=== PATIENT | male | born 2000 | race Caucasian/White ===

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

== ENCOUNTER 2019-03-29 13:06 | Outpatient (CLI) | payer OTHER, SELFPAY ==
--- NOTE | 2019-03-29 13:12 | DI.RAD_ITS ---
EXAM: XR SHOULDER LT COMPLETE 2+V CLINICAL HISTORY: frequent dislocations TECHNIQUE: COMPARISON: No exams were available for comparison FINDINGS: Two views were obtained. No bony or soft tissue abnormality seen. IMPRESSION:
== END 2019-03-29 13:26 ==
PROVIDERS: PCP Internal Medicine; Referring Provider Internal Medicine; Visit Provider Student in an Organized Health Care Education/Training Program
DX: M25.512 Pain in left shoulder (principal); M24.412 Recurrent dislocation, left shoulder
CPT/HCPCS: 99204; 99215; 73030

== ENCOUNTER → 2019-05-02 14:13 | Outpatient (BNVA) | payer OTHER, SELFPAY | PROVIDERS: PCP Internal Medicine; Referring Provider Internal Medicine; Visit Provider Student in an Organized Health Care Education/Training Program | DX: M24.412 Recurrent dislocation, left shoulder (principal); S43.432D Superior glenoid labrum lesion of left shoulder, subsequent encounter; X58.XXXD Exposure to other specified factors, subsequent encounter | CPT/HCPCS: 99214 ==

== ENCOUNTER 2019-05-12 06:02 | Day surgery (SDC) | payer OTHER, SELFPAY ==
--- NOTE | 2019-05-10 14:44 | DSU.FORM ---
05/10/19 Per office request patient told to bring in folder during PPOV.
[2019-05-12] VITALS (9 sets, daily range): BP systolic 126–140; BP diastolic 48–74; PULSE 85–106; RESP 16–22; TEMP 36.3–36.7; O2SAT 97–100
[2019-05-12] MEDS: Lactated Ringers 1,000 ML 100 ML IV ×2 (06:45→12:30)
--- NOTE | 2019-05-12 07:38 | PDOC.DSDIS_ITS ---
Discharge Plan Disposition Patient Disposition: HOME Condition: Stable Discharge Details Reason For Visit: Left shoulder surgery Attending Provider: Shahid Sauer Primary Care Provider: Braydon Chamberlain Home Meds and New Rx's Prescriptions: New naproxen 250 mg tablet 250 - 500 mg PO BID PRN (Reason: pain, moderate) Qty: 60 RF: 0 aspirin 81 mg tablet,delayed release (DR/EC) 81 mg PO DAILY 14 Days Qty: 14 RF: 0 oxycodone 5 mg tablet 5 - 10 mg PO Q4H PRN (Reason: moderate to severe pain) Qty: 22 RF: 0 Discharge Instructions Additional Instructions: Surgery: Shoulder arthroscopy with anterior and posterior labral repair, stabilization and open biceps tenodesis Activity: You should keep your arm at your side in a neutral position at all times except for physical therapy. Do not try to lift or raise your arm using your own muscles. You should use the sling whenever you are out of the house. You may have to adjust the abduction pillow or remove it for comfort. At home it is best to remove the sling and rest the arm on a pillow at your side or support the operative side with your other hand. You may allow the arm to dangle at your side. A physical therapy prescription will be provided separately today. Range of motion guidelines: 0 degrees external rotation and 90 degrees forward flexion for 3 weeks 30 degrees external rotation 120 degrees forward flexion weeks 3-6 Last a full range of motion after week 6 Prescriptions: Aspirin 81 mg take 1 daily to prevent a blood clot for 2 weeks Naproxen 250 mg take 1-2 every 12 hours with a meal as needed for moderate pain Oxycodone 5 mg take 1-2 every 4-6 hours as needed for severe pain You may use [id number] Tylenol (acetaminophen) as needed for mild pain. These pain medications may be taken all at once or in different combinations as needed. Also, recommend Colace (docusate) as a stool softener as surgery and pain medicine cause constipation. Dressings: Leave dressing in place for 2-3 days. May then remove and leave open to air or cover incisions with Band-Aids. May shower after 5 days. Follow-up: 10-[address] Sauer. If cannot follow up locally at that time, must send photo of all shoulder incisions healing to Dr. Sauer at [phone] and follow up within 4-6 weeks as best possible. Please call the office during business hours with any questions or concerns. Let us know right away if you develop any redness, drainage, fevers, chest pain, or trouble breathing. Do not drink alcohol or drive for at least 24 hours after anesthesia. Referrals: Shahid Sauer MD [ [facility] STAFF PHYSICIAN] - Discharge Orders Discharge Orders: Discharge Order (Routine); Ordered 05/12/19 Ordered By: Shahid Sauer DS: Diagnosis Discharge Diagnosis (1) SLAP lesion of left shoulder: Status: Acute (2) Recurrent dislocation, left shoulder: Status: Acute
[2019-05-12] MEDS: ceFAZolin 2 GM/50 ML BAG IVPB (07:46)
[2019-05-12] MEDS: EPINEPHrine 30 MG/30 ML VIAL (11:02)
--- NOTE | 2019-05-12 11:53 | W.PM.OP ---
Date of service: 05/12/19 Time of Service: 11:53 Operative Note Operative Note DATE OF PROCEDURE: 05/12/19 PRE-OP DIAGNOSIS: Left: 1. Recurrent shoulder dislocation 2. SLAP tear POST-OP DIAGNOSIS: other 1. Recurrent shoulder dislocation with anterior and posterior labral tearing 2. Type 4 bucket handle SLAP tear with detached LHB anchor 3. LHB longitudinal split tearing near anchor 4. Extensive synovitis 5. Extensive bursitis PROCEDURE: Left: 1. Extensive debridement, CPT# 44166. This involved using arthroscopic hand instruments, power instruments, and radiofrequency instruments to debride areas of labral tearing, synovitis, and chondromalacia within the glenohumeral joint anteriorly, superiorly, and posteriorly. 2. Open biceps tenodesis, CPT# 80259. This involved reattaching the long head of the biceps tendon to the proximal humerus in the sub-pectoral area of the bicipital groove at the correct tension. 3. Subacromial decompression with partial acromioplasty, CPT# 44220. This involved using arthroscopic power instruments and a radiofrequency wand to complete a bursectomy and remove bone spurs on the undersurface of the acromion. 4. Arthroscopic labral repair capsulorhaphy, CPT# 40473. This involved mobilizing the anterior and posterior labral tear and surrounding capsule ligamentous structures and anchoring this tissue to the glenoid rim with suture anchors both anteriorly and posterior 5. Arthroscopic SLAP repair, CPT #19537. This involved stabilizing the displaced bucket handle type 4 SLAP tear to the superior glenoid by re-attaching it with suture anchors at 11 and 2 o clock positions. The sales service assistant was medically required in order to help assist in techniques above, which require positioning the arm, holding the arthroscope, and manipulating 2 to 4 instruments and sutures at the same time. This cannot be done without the help of an experienced sales service assistant. SURGEON: Shahid Sauer MECHANICAL DESIGNER: Tristian Echeverria ANESTHESIA: GETA, regional and local ESTIMATED BLOOD LOSS: 10 PATHOLOGY: none sent COMPLICATIONS: None Patient was transported to: PACU Patient's condition: stable Implants: Arthrex: 2.9 mm PushLock x 6 and Unicortical Proximal Biceps Tenodesis Button Indications: The patient was diagnosed with the above conditions and appropriately indicated for surgical intervention. Please see complete medical record for details. Findings: Exam under anesthesia: Full symmetric ROM with anterior and posterior humeral head subluxation Glenohumeral joint: Significant type 4 SLAP tear with bucket handle displacement into the joint. Tear extending into the LHB tendon anchor. Extensive anterior and posterior synovitis. Small amount of anterior and satya-inferior glenoid bone loss. Small posterior humeral head Hill-Sachs lesion. Intact rotator cuff. Grade 1-2 chondromalacia adjacent to anterior, superior, and posterior labral tearing. Subacromial space: Extensive bursitis. Intact rotator cuff. Moderate undersurface acromion bone spur. Procedure Description: The patient was taken to the operating room and transferred to the operating room table. General anesthesia was induced. While under anesthesia, bilateral shoulders were examined. The patient was positioned in the beachchair position. All bony prominences were well-padded. Preoperative antibiotics were administered. The shoulder was prepped and draped in the usual sterile fashion. The correct patient, procedure, and side of the procedure were all verified prior to incision. Starting through the posterior portal a standard complete diagnostic arthroscopy was performed of the glenohumeral joint including inspection of the long head of the biceps, anterior and superior labrum, subscapularis tendon, supraspinatus and infraspinatus tendons, and axillary recess. The glenoid and humeral head cartilage as well as the posterior labrum were inspected from an anterior viewing portal. Significant findings noted above. The biceps tendon was tenotomized from the labrum using arthroscopic scissors. The extensive SLAP tear was debrided to remove loose frayed tissue from the joint. 10 cc of 0.5% bupivacaine with epinephrine was infiltrated about a 2 to 3 cm longitudinal incision at the inferior margin of the pectoralis major localized over the long head of the biceps tendon. Blunt and sharp dissection were used to expose the tendon in the bicipital groove. The tendon was brought out of the wound and kept off the skin on top of a blue towel. The correct location for sub-pectoral fixation was localized, prepped with a rasp, and then drilled with a 3.2 mm drill pin in a unicortical fashion. Using a fiber loop suture the tendon was prepped from the musculotendinous junction a few centimeters proximal. The excess tendon was amputated. The free suture ends were then passed through the unicortical button implant. The drill pin was removed and the implant was placed into the humeral intramedullary canal. The button was flipped and the sutures were tensioned bringing the tendon down to bone. Tension and fixation were then tested and found to be appropriate. The free ends of the suture were were tied. The wound was copiously irrigated with normal saline. Subcutaneous tissue was closed using 3-0 Monocryl in a buried interrupted fashion. Skin was closed using 3-0 Monocryl in a buried subcuticular running fashion. Skin glue was applied over the incision. Mastisol was applied about the incision. The incision was covered with Telfa, gauze, and covered with a Tegaderm dressing. Starting through the posterior portal, the arthroscope was directed into the subacromial space. A lateral 50 yard line lateral portal was created. A combination of power instruments and a radiofrequency ablator were used to debride bursitis anteriorly, posteriorly, and laterally as well as expose and smooth bone spurring on the undersurface of the acromion. The bursectomy was completed viewing laterally and working from posteriorly and the rotator cuff was thoroughly inspected with findings noted above. The arthroscope was returned to the joint. Viewing from anterior attention was turned to the posterior labral repair. 2 rigid cannulas were inserted posteriorly. The labral elevator and then ring curette were used to prepare the posterior glenoid rim and mobilize capsule and labrum for repair. 1 anchor was placed centrally incorporating central and inferior posterior capsular ligamentous tissue using a curved lasso and suture tape cinch mode technique. A second anchor was placed more superiorly anchoring the posterior margin of the SLAP tear but avoiding placement directly superiorly where there is poor healing and blood flow. The cannulas were removed and viewing was returned to posterior a second inferior anterior portal was established just superior the subscapularis. Rigid cannulas were inserted through both anterior portals. Again an elevator was used to mobilize significantly torn and disrupted anterior capsule ligamentous tissue and the ring curette was used to prepare the anterior glenoid rim from inferior centrally and superiorly. Begin with the most inferior position of the tear and taking great care to incorporate capsular ligamentous aspects of the anterior inferior glenohumeral ligament the first anterior anchor was placed. I proceeded to place 2 more anchors inferiorly and then centrally for the anterior labral tear. Lastly for the more superior portal a fourth anchor was placed to secure the 11 o'clock position of the previously dislocated and unstable SLAP tear. The biceps anchor was probed and found to be held in place by the anterior and posterior anchors avoiding the direct biceps anchor zone. There was some fraying and redundant tissue somewhat anteriorly that was trimmed to a stable margin. The joint was inspected from superiorly and found to have excellent reduction of the nearly circumferential anterior inferior anterior superior and posterior labral tear. All tissue was probed and found to be stable. The shoulder was drained of arthroscopic fluid. All portal sites were copiously irrigated. These incisions were closed using 3-0 Monocryl in a buried fashion, covered with Mastisol, Steri-Strips, Xeroform, dry gauze, and ABDs. The dressings were covered and secured with Medipore tape. The operative extremity was placed into a sling for immobilization. The patient awoke from anesthesia without complication and was transferred to the recovery room in a stable condition.
[2019-05-12] MEDS: oxyCODONE 5 MG TAB PO (13:19)
== END 2019-05-12 14:25 | disposition home or self-care (01) ==
PROVIDERS: PCP Internal Medicine; Visit Provider Student in an Organized Health Care Education/Training Program
PROC: (CPT 29805; principal; 2019-05-12 07:30)
PROC: (CPT 23430; 2019-05-12 07:30)
DX: S43.432A Superior glenoid labrum lesion of left shoulder, initial encounter (principal); M24.412 Recurrent dislocation, left shoulder; S46.112A Strain of muscle, fascia and tendon of long head of biceps, left arm, initial encounter; M65.812 Other synovitis and tenosynovitis, left shoulder; M75.52 Bursitis of left shoulder; M94.212 Chondromalacia, left shoulder; M85.812 Other specified disorders of bone density and structure, left shoulder; S42.295A Other nondisplaced fracture of upper end of left humerus, initial encounter for closed fracture; M25.812 Other specified joint disorders, left shoulder; G89.18 Other acute postprocedural pain; X50.0XXA Overexertion from strenuous movement or load, initial encounter
CPT/HCPCS: 29806; 29826; 23430; 29823; 29807; C1713; 76942; J0690; J1100; J1885; J2001; J2250; J2370; J2405; L3670

== ENCOUNTER 2019-05-17 19:00 | Emergency (ER) | payer OTHER, SELFPAY ==
[2019-05-17 19:05] VITALS: BP 140/100; PULSE 94; RESP 16; TEMP 36.4; O2SAT 97
--- NOTE | 2019-05-17 19:14 | ED.GENADUL_ITS ---
Discharge Plan Disposition Patient Disposition: HOME Condition: Good Discharge Details Chief Complaint: Recheck Clinical Impression: Encounter for post surgical wound check Primary Care Provider: Braydon Chamberlain ED Provider: Carly Hardy Home Meds and New Rx's Prescriptions: Continued oxycodone 5 mg tablet 5 - 10 mg PO Q4H MDD 60 PRN (Reason: moderate to severe pain) Qty: 22 RF: 0 naproxen 250 mg tablet 250 - 500 mg PO BID PRN (Reason: pain, moderate) Qty: 60 RF: 0 aspirin 81 mg tablet,delayed release (DR/EC) 81 mg PO DAILY 14 Days Qty: 14 RF: 0 Discharge Instructions Additional Instructions: Please follow postoperative instructions and forth by Dr. smith. Please monitor wound for signs infection including redness, warmth, drainage, increased pain, fever/chills. He develop these or other new/worsening symptoms please seek care urgently once again. Referrals: Shahid Sauer MD [ [facility] STAFF PHYSICIAN] - Discharge Data Discharge Date/Time-TO BE ENTERED AT DEPARTURE: 05/17/19 19:55 Medical Decision Making Patient is a 18-year-old male presenting today with chief complaint difficulty with postoperative dressings. Patient is 6 days status post left shoulder arthroscopy for instability. Patient also had an open biceps tenodesis. He reports that he was advised by orthopedics that he could remove the dressings today. In doing so, noted in the dressing over the tenodesis to be sticking. P resents in here for dressing removal. About the superior aspect of the shoulder, port sites are noted covered with Steri-Strips. I advised that he leave these in place and allow this to come off naturally. No surrounding signs of infection. No discomfort over this area. The wound over the biceps tenodesis however, has Telfa in place. Appears that the Telfa may have been placed prior to the glue drying. When the patient tried to remove the Telfa, a piece of the glue came off and there is an open area of bleeding. I do not see any evidence of infection in this area either. Nursing staff attempted to remove this but was having a large amount of difficulty. Patient did vasovagal but was laid down prior to syncopal event. We attempted to trim back the dressing as much as possible. Advised that he could shower as was advised by orthopedics and that this may help with some of the dressing come off. We did discuss signs symptoms of infection once again and when to seek care urgently. Otherwise, that that he follow-up with orthopedics regarding further wound care and follow postoperative instructions. All of their questions and concerns were addressed in agreement this plan. HPI General Mode of arrival: ambulatory . Date/Time Provider Initiated Documentation: 05/17/19 19:14 . Limitations to Documentation: no limitations . Information obtained by: patient, family (Mother) and RN notes reviewed . History of Present Illness 18 year old M presents to the emergency department with the chief complaint of Presents for assistance with dressing removal, described as mild, Quality is described as aching, and is localized to the right and upper extremity. Patient reports no radiation. Patient started experiencing this day(s) (Patient is 6 days postop) Immobilization improves symptom(s), Movement worsens symptoms . Patient notes no other symptoms.. Related Data Home Medications Medication Instructions Recorded Confirmed aspirin 81 mg PO DAILY 14 Days #14 tab 05/12/19 naproxen 250 - 500 mg PO BID PRN #60 tab 05/12/19 oxycodone 5 mg tablet 5 - 10 mg PO Q4H PRN #22 tab MDD 60 05/12/19 05/12/19 Previous Rx's Medication Instructions Recorded aspirin 81 mg PO DAILY 14 Days #14 tab 05/12/19 naproxen 250 - 500 mg PO BID PRN #60 tab 05/12/19 oxycodone 5 mg tablet 5 - 10 mg PO Q4H PRN #22 tab MDD 60 05/12/19 Allergies Allergy/AdvReac Type Severity Reaction Status Date / Time No Known Allergies Allergy Unverified 03/29/19 12:51 General Stated Complaint: Recheck PEARL: 4 Review of Systems Constitutional Constitutional: Reports as per HPI, Denies chills and Denies fever(s) Musculoskeletal Musculoskeletal: Reports as per HPI Integumentary/Breasts Skin/Breast: Reports as per HPI Neurologic Neurologic: Reports as per HPI, Denies sensory deficit and Denies paresthesias [facility] Social History Smoking/Tobacco Use Status: Never Alcohol Intake: never Drug use: Never Current gender identity: male Do you feel safe at home: Yes Do you feel safe in your relationship?: Yes Exam Const General: cooperative, healthy appearing, comfortable, no acute distress and well developed Nutritional Appearance: average body habitus and well nourished Orientation: alert and awake Resp Effort & Inspection: normal respiratory effort, able to speak in complete sentences and no respiratory distress Cardio Rate: regular rate Rhythm: regular rhythm Skin Trauma: laceration (Incisions appear to be healing well with no erythema, warmth, drainage.) Neuro General: alert and awake Cognition: normal cognition Speech: speech normal Gait: normal gait Sensory Exam: no sensory deficits noted Psych Appearance: grossly normal and well kempt Mental Status: mental status grossly normal Speech and Movement: speech and movement normal Course Vital Signs Vital signs: Vital Signs Temperature 36.4 C L 05/17/19 19:05 Pulse 94 H 05/17/19 19:05 Respiratory Rate 16 05/17/19 19:05 Blood Pressure 140/100 H 05/17/19 19:05 Pulse Oximetry 97 05/17/19 19:05 Temperature 36.4 C L 05/17/19 19:05 Temperature Source Temporal Artery Scan 05/17/19 19:05 Pulse 94 H 05/17/19 19:05 Respiratory Rate 16 05/17/19 19:05 Respiratory Effort 05/17/19 19:08 Blood Pressure 140/100 H 05/17/19 19:05 Blood Pressure Position Sitting 05/17/19 19:05 Pulse Oximetry 97 05/17/19 19:05 Oxygen Delivery Method Room Air 05/17/19 19:05 Oxygen Flow Rate 0 05/17/19 19:05
== END 2019-05-17 19:55 | disposition home or self-care (01) ==
PROVIDERS: Emergency Provider Physician Assistant; PCP Internal Medicine
DX: T81.31XA Disruption of external operation (surgical) wound, not elsewhere classified, initial encounter (principal); Y83.8 Other surgical procedures as the cause of abnormal reaction of the patient, or of later complication, without mention of misadventure at the time of the procedure; R42 Dizziness and giddiness; Z48.01 Encounter for change or removal of surgical wound dressing
CPT/HCPCS: 99281; 99283

== ENCOUNTER → 2019-07-18 10:26 | Outpatient (BNVA) | payer OTHER, SELFPAY | PROVIDERS: PCP Internal Medicine; Referring Provider Internal Medicine; Visit Provider Student in an Organized Health Care Education/Training Program | DX: S43.432D Superior glenoid labrum lesion of left shoulder, subsequent encounter (principal); X58.XXXD Exposure to other specified factors, subsequent encounter; M24.412 Recurrent dislocation, left shoulder ==

== ENCOUNTER → 2019-08-15 08:58 | Outpatient (BNVA) | payer OTHER, SELFPAY | PROVIDERS: PCP Internal Medicine; Referring Provider Internal Medicine; Visit Provider Student in an Organized Health Care Education/Training Program | DX: S43.432D Superior glenoid labrum lesion of left shoulder, subsequent encounter (principal); X58.XXXD Exposure to other specified factors, subsequent encounter; M24.412 Recurrent dislocation, left shoulder; G25.89 Other specified extrapyramidal and movement disorders; M24.512 Contracture, left shoulder | CPT/HCPCS: 99213 ==

== ENCOUNTER → 2019-11-15 08:59 | Outpatient (BNVA) | payer OTHER, SELFPAY | PROVIDERS: PCP Internal Medicine; Referring Provider Internal Medicine; Visit Provider Student in an Organized Health Care Education/Training Program | DX: S43.432D Superior glenoid labrum lesion of left shoulder, subsequent encounter (principal); X58.XXXD Exposure to other specified factors, subsequent encounter; M24.512 Contracture, left shoulder; G25.89 Other specified extrapyramidal and movement disorders; M24.412 Recurrent dislocation, left shoulder | CPT/HCPCS: 99213 ==

== ENCOUNTER → 2020-04-17 09:06 | Outpatient (BNVA) | payer OTHER, SELFPAY | PROVIDERS: PCP Internal Medicine; Referring Provider Internal Medicine; Visit Provider Student in an Organized Health Care Education/Training Program | DX: Z47.89 Encounter for other orthopedic aftercare (principal); M24.512 Contracture, left shoulder; G25.89 Other specified extrapyramidal and movement disorders; M24.412 Recurrent dislocation, left shoulder | CPT/HCPCS: 99213 ==

== ENCOUNTER 2023-04-18 06:59 | Emergency (ER) | payer OTHER, SELFPAY ==
[2023-04-18] VITALS (20 sets, daily range): BP systolic 103–139; BP diastolic 59–85; PULSE 70–127; RESP 16–18; TEMP 36.5–37.1; O2SAT 98–100
--- NOTE | 2023-04-18 07:30 | ED.GENADUL_ITS ---
Discharge Plan Disposition Patient Disposition: Home Condition: Good Discharge Details Clinical Impression: Vomiting Primary Care Provider: Braydon Chamberlain ED Provider: Lauren Marks Home Meds and New Rx's Prescriptions: New ondansetron 4 mg tablet,disintegrating 4 mg PO Q8H PRNQty: 14 0RF Discharge Instructions Instructions: Acute Nausea and Vomiting (ED) Additional Instructions: Zofran up to every 8 hours as needed for vomiting. Call your primary care doctor tomorrow to schedule an appointment for within one week to followup on your visit today. Mention that your potassium and magnesium were a little low, and that your bilirubin (liver test) and blood glucose were a little high. Return to the emergency department for new or worsening symptoms including inability to keep down fluids, feeling like you are going to pass out, or if you have any other concerns. Stand Alone Forms: Work Release Referrals: Braydon Chamberlain MD [Primary Care Provider] - Medical Decision Making 22yo previously healthy male presenting for acute nausea vomiting onset overnight. Nonbloody nonbilious, no abdominal pain, fevers, or bowel changes. Tacycardiac upon ambulating into [facility] to 127, improved to 90 by time of rooming without intervention. Vital signs otherwise reassuring. Not concerning for sepsis. Physical exam reassuring, non-toxic appearing, no abdominal tenderness. Not concerned for bowel obstruction, appendicitis, or gallblader pathology. Would not pursue CT or USi maging. Given 1L IVFB and IV zofran. Labs reviewed as below, CBC with leukocytosis otherwise reassuring, CMP with borderline hypokalemia and hypomagnesium (advised to followup with PCP for repeat labs),bilirubin slightly elevated at 1.4 with normal transaminases. Low suspicion for acute hepatitis, hepatitis panel would be send out; he was also advised to followup with his PCP for this. On reassessment he reports feeling much improved and is able to tolerate PO fluids, requests discharge home which is reasonable. Discharge instructions and return precautions were reviewed with patient who verbalized understanding. All questions were answered and he is in full agreement with the plan. Lab Data Lab results reviewed: Yes I reviewed the patient's lab results. Labs: Laboratory Tests Range/Units 04/18/23 07:30 WBC (4.4-10.8) 10^3/uL 13.55 H RBC (4.36-5.78) 10^6/uL 5.00 Hgb (13.5-17.5) g/dL 15.3 Hct (40.0-50.0) % 43.2 MCV (80-95) fL 86 MCH (27.0-33.0) pg 30.6 MCHC (32.0-36.0) % 35.4 RDW (11.8-14.1) % 11.4 L Plt Count (130-400) 10^3/uL 262 MPV (8.0-11.0) fL 10.6 Immature Gran % 0.4 Neutrophils % 92.3 Lymphocytes % 3.1 Monocytes % 4.1 Eosinophils % 0.0 Basophils % 0.1 Nucleated RBC % (0.0-0.3) % 0.0 Absolute Neutrophils (1.2-6.7) 10^3/uL 12.51 H Absolute Lymphocytes (1.2-3.4) 10^3/uL 0.42 L Absolute Monocytes (0.1-0.8) 10^3/uL 0.56 Absolute Eosinophils (0.0-0.7) 10^3/uL 0.00 Absolute Basophils (0.0-0.2) 10^3/uL 0.01 Sodium (136-145) mmol/L 135 L Potassium (3.5-5.1) mmol/L 3.4 L Chloride (98-107) mmol/L 99 Carbon Dioxide (21.0-32.0) mmol/L 25.6 Anion Gap (3-11) mmol/L 10.4 BUN (7-18) mg/dL 21 H Creatinine (0.70-1.30) mg/dL 1.2 Est GFR (CKD-EPI 2020) (mL/min/1.73m2) 87.15 Glucose (74-106) mg/dL 203 H Calcium (8.5-10.1) mg/dL 9.4 Magnesium (1.8-2.4) mg/dL 1.5 L Total Bilirubin (0.2-1.0) mg/dL 1.4 H AST (15-37) U/L 16 ALT (16-63) U/L 16 Alkaline Phosphatase (46-116) U/L 86 Total Protein (6.4-8.2) g/dL 7.9 Albumin (3.4-5.0) g/dL 4.6 HPI General Mode of arrival: ambulatory . Date/Time Provider Initiated Documentation: 04/18/23 07:18 . Limitations to Documentation: no limitations . Information obtained by: patient . HPI Narrative: 22yo previously healthy male presenting for acute nausea vomiting. [place] well yesterday. Overnight woke up nauseated and has had 5-6 episodes of nonbloody nonbilious emesis since then. No abdominal pain. No fevers. No lightheadedness. He is otherwise in his usual state of health with no chills, r ange, constipation, diarrhea, chest pain, shortness of breath, or other concerns. Related Data Home Medications Medication Instructions Recorded Confirmed ondansetron 4 mg disintegrating 4 mg PO Q8H PRN #14 tabs 04/18/23 tablet Previous Rx's Medication Instructions Recorded ondansetron 4 mg disintegrating 4 mg PO Q8H PRN #14 tabs 04/18/23 tablet Allergies Allergy/AdvReac Type Severity Reaction Status Date / Time No Known Allergies Allergy Verified 04/18/23 07:17 General Stated Complaint: Nausea/Vomit/Diar PEARL: 3 Review of Systems Narrative: see HPI PFSH All Active Problems (Updated 04/18/23 @ 09:02 by Lauren Marks MD) Vomiting (Acute) Contracture of left shoulder (Acute ~08/2019) Scapular dyskinesis (Acute ~08/2019) SLAP lesion of left shoulder (Acute ~05/2015) Recurrent dislocation, left shoulder (Acute ~05/2015) Social History Smoking/Tobacco Use Status: Never Smoking risk assessment performed?: Yes Alcohol Intake: never Drug use: Never Substance use type: does not use Housing: house Current gender identity: male Do you feel safe at home: Yes Do you feel safe in your relationship?: Yes Exam Narrative Exam Narrative: General: Alert, well appearing, well nourished, in no acute distress. Head: Normocephalic, atraumatic Neck: Trachea midline, ?Neck supple. ENT: ?MMM.? Cardiac: ?RRR, no murmurs appreciated Resp: No respiratory distress. CTAB. Abd: ?Soft, non-distended, nontender : ?No suprapubic tenderness. Extremities: ?No deformities.? No peripheral edema. Neurologic: GCS 15. ? Moves all extremities freely against gravity Course Vital Signs Vital signs: Vital Signs Temperature 36.5 C 04/18/23 07:15 Pulse 127 H 04/18/23 07:15 Respiratory Rate 18 04/18/23 07:15 Blood Pressure 139/72 04/18/23 07:15 Pulse Oximetry 98 04/18/23 07:15 Temperature 37.1 C 04/18/23 07:20 Pulse 90 04/18/23 07:20 Respiratory Rate 16 04/18/23 07:20 Respiratory Effort Normal, Non-Labored 04/18/23 07:19 Blood Pressure 139/72 04/18/23 07:15 Pulse Oximetry 99 04/18/23 07:20 Oxygen Delivery Method Room Air 04/18/23 07:20 Pain Level 0 04/18/23 07:15
[2023-04-18 07:43] LABS: Abs Immature Grans 0.05 10^3/uL (0.0-0.06); Absolute Lymphocyte Count 0.42 10^3/uL (1.2-3.4); Absolute Monocyte Count 0.56 10^3/uL (0.1-0.8); Basophils % 0.1; HCT 43.2 % (40.0-50.0); HGB 15.3 g/dL (13.5-17.5); Immature Grans % 0.4; Lymphocytes % 3.1; MCH 30.6 pg (27.0-33.0); MCHC 35.4 % (32.0-36.0); MCV 86 fL (80-95); MPV 10.6 fL (8.0-11.0); Monocytes % 4.1; Neutrophils % 92.3; Platelet Count 262 10^3/uL (130-400); RDW 11.4 % (11.8-14.1); RDW-SD 36.1 fL; WBC 13.55 10^3/uL (4.4-10.8)
[2023-04-18] MEDS: Normal Saline 1,000 ML 1000 ML IV (07:43)
[2023-04-18] MEDS: Ondansetron 4 MG/2 ML VIAL IVP (07:44)
[2023-04-18 07:46] LABS: Absolute Basophil Count 0.01 10^3/uL (0.0-0.2); Absolute Neutrophil Count 12.51 10^3/uL (1.2-6.7)
[2023-04-18 07:58] LABS: ALT 16 U/L (16-63); AST 16 U/L (15-37); Albumin 4.6 g/dL (3.4-5.0); Alkaline Phosphatase 86 U/L (46-116); Anion Gap 10.4 mmol/L (3-11); BUN 21 mg/dL (7-18); Bilirubin, Total 1.4 mg/dL (0.2-1.0); CO2 25.6 mmol/L (21.0-32.0); CREATININE 1.2 mg/dL (0.70-1.30); Calcium 9.4 mg/dL (8.5-10.1); Chloride 99 mmol/L (98-107); Estimated GFR 87.15 (mL/min/1.73m2); Glucose 203 mg/dL (74-106); Magnesium 1.5 mg/dL (1.8-2.4); Potassium 3.4 mmol/L (3.5-5.1); Sodium 135 mmol/L (136-145); Total Protein 7.9 g/dL (6.4-8.2)
--- NOTE | 2023-04-18 08:49 | NUR.NOTE ---
PO challenge completed. Pt states he feels much better. Nursing Note:
[2023-04-18] MEDS: Ondansetron O.D.T. 4 MG TABEF, 3 TABS/BTL PO (09:07)
== END 2023-04-18 09:06 | disposition home or self-care (01) ==
PROVIDERS: Emergency Provider Student in an Organized Health Care Education/Training Program; PCP Internal Medicine
DX: R11.2 Nausea with vomiting, unspecified (principal); R19.7 Diarrhea, unspecified
CPT/HCPCS: 80053; 96361; 96374; 99284; 83735; 85025; J2405